=== PATIENT | female | born 1975 | race Caucasian/White ===

== ENCOUNTER 2025-07-13 13:45 | Outpatient (CLI) | payer OTHER | END 2025-07-13 13:46 | disposition home or self-care (01) | LOC: CSHMAMMO 13:45 | PROVIDERS: ATTEND Family Medicine | DX: Z12.31 Encounter for screening mammogram for malignant neoplasm of breast (principal) | CPT/HCPCS: 77063; 77067 ==

== ENCOUNTER 2025-08-21 11:34 | Day surgery (SDC) | payer OTHER ==
[2025-08-17 14:12] VITALS: BMI 29.6
[2025-08-21] MEDS ORDERED: PROPOFOL 80 ML ONE (14:02)
[2025-08-21] MEDS ORDERED: Ondansetron PF 4 MG/2 ML Vial ONE (14:03)
[2025-08-21] MEDS ORDERED: PROPOFOL 20 ML ONE (16:20)
== END 2025-08-21 17:45 | disposition home or self-care (01) ==
LOC: CSHSDC 11:34
PROVIDERS: ATTEND Surgery
DX: Z12.11 Encounter for screening for malignant neoplasm of colon (principal); D12.8 Benign neoplasm of rectum; K63.5 Polyp of colon; K21.9 Gastro-esophageal reflux disease without esophagitis; Z88.0 Allergy status to penicillin; Z79.899 Other long term (current) drug therapy
CPT/HCPCS: 88305; J2250; J2405; J2704; J3010